=== PATIENT | male | born 1985 | race Caucasian/White ===

== ENCOUNTER → 2019-11-11 | Outpatient (CLI) | payer BC ==
--- NOTE | 2019-11-11 09:33 | RAD ---
EXAM: Left shoulder, 3 views; left clavicle, 2 views. HISTORY: Pain. COMPARISON: None. FINDINGS: 3 views of the left shoulder and 2 views of the left clavicle are obtained. There is no fracture, dislocation or sedation. There is a small benign bone island within the left humeral head. IMPRESSION: No acute osseous finding. Electronically signed by: Sil Whittington MD (11/11/2019 9:30 AM) [facility]
--- NOTE | 2019-11-11 09:33 | RAD ---
EXAM: Left shoulder, 3 views; left clavicle, 2 views. HISTORY: Pain. COMPARISON: None. FINDINGS: 3 views of the left shoulder and 2 views of the left clavicle are obtained. There is no fracture, dislocation or sedation. There is a small benign bone island within the left humeral head. IMPRESSION: No acute osseous finding. Electronically signed by: Sil Whittington MD (11/11/2019 9:30 AM) [facility]
== END ==
LOC: RAD 08:52
DX: M25.512 Pain in left shoulder (principal)
CPT/HCPCS: 73000; 73030